=== PATIENT | female | born 2000 | race Caucasian/White ===

== ENCOUNTER 2019-02-25 03:02 | Emergency (ER) | payer OTHER ==
[~2019-02-25] VITALS: Ht 157.5 cm; Wt 64.5 kg
[2019-02-25 03:03] VITALS: Ht 157.5 cm; Wt 64.5 kg
[2019-02-25] MEDS ORDERED: IBUPROFEN 600 MG TAB PO ONE (04:00)
[2019-02-25] MEDS ORDERED: LORAZEPAM 1 MG TAB PO ONE (04:00)
--- NOTE | 2019-02-25 04:10 | ERD ---
ER Documentation Chief Complaint Chief Complaint CP, R ARM PAIN X'S 1 WEEK HPI 18-year-old female with no significant past medical history presents emergency department complaining of sharp, tightening feeling mid chest pain which is intermittent for the past 1 week. She also reports some numbness and tingling to her right upper extremity. She denies any chest pain at rest. She reports increased stress due to school at this time. She tried no medication for relief of symptoms. She adamantly denies any homicidal or suicidal ideation. She does admit to feeling very anxious at this time. No other symptoms reported currently. ROS All systems reviewed and are negative except as per history of present illness. Medications Home Meds Active Scripts Hydroxyzine Hcl* (Hydroxyzine Hcl*) 25 Mg Tablet, 25 MG PO Q8H PRN for ANXIETY, #30 TAB Prov:JUANCHO TOLENTINO PA-C 02/25/19 Allergies Allergies: Coded Allergies: No Known Drug Allergy (Verified Allergy, Unknown, 06/30/09) PMhx/Soc Medical and Surgical Hx: pt denies Medical Hx FmHx Family History: No diabetes Physical Exam Vitals Physical Exam Const: No acute distress Head: Atraumatic Eyes: Normal Conjunctiva ENT: Normal External Ears, Nose and Mouth. Neck: Full range of motion. No meningismus. Resp: Clear to auscultation bilaterally Cardio: Regular rate and rhythm, no murmurs. Reproducible midsternal chest pain on palpation. Abd: Soft, non tender, non distended. Normal bowel sounds Skin: No petechiae or rashes Back: No midline or flank tenderness Ext: No cyanosis, or edema Neur: Awake and alert Psych: Normal Mood and Affect Results 24 hrs Laboratory Tests Test 02/25/19 04:22 POC Beta HCG, Qualitative NEGATIVE Current Medications Medications Dose Sig/[place] Start Time Status Last (Trade) Ordered Route PRN Stop Time Admin Dose Reason Admin Lorazepam 1 mg ONCE ONCE 02/25/19 DC 02/25/19 (Ativan) PO 04:00 02/25/19 04:21 04:02 Ibuprofen 600 mg ONCE ONCE 02/25/19 DC 02/25/19 (Motrin) PO 04:00 02/25/19 04:21 04:02 [place] [id number] Radiology Main Line: [phone] DIAGNOSTIC IMAGING REPORT Patient: LANEY AWAD : 2000 Age: 18 Sex: F MR #: [id number] [facility] #: [id number] DOS: 02/25/19 0000 Ordering MD: JUANCHO TOLENTINO PA-C Location: [facility] Room/Bed: PROCEDURE: Single view chest. CLINICAL INDICATION: Chest pain TECHNIQUE: Single view of the chest was obtained COMPARISON: CR CHEST 06/30/2009 FINDINGS: There is no airspace consolidation or focal infiltrate. No pleural effusion or pneumothorax. Cardiac silhouette and mediastinal contours are unremarkable. Pulmonary vasculature appears normal. Regional bones are grossly unremarkable. IMPRESSION: No evidence of active cardiopulmonary disease. RPTAT: [facility] Physician Raudel Date Time Electronically viewed and signed by Physician Raudel on 02/25/2019 05:16 xB/ CC: JUANCHO TOLENTINO PA-C [id number] Procedures/MDM 18-year-old female presents to the emergency department complaining of midsternal chest pain and tingling in her right upper extremity as well as anxiety for the past 1 week. Examination revealed midsternal chest wall tenderness to palpation. Low suspicion for acute coronary syndrome or other emergencies as the patient's pain was reproducible on chest x-ray and EKG were within normal limits. Symptoms likely secondary to costochondritis and/or anxiety. The patient was administered Ativan and ibuprofen in the department and is significantly improved prior to discharge. Patient was counseled on my diagnostic impression and plan for further outpatient management. She was advised to return to the department immediately for any new or worsening or concerning symptoms and have 24 to 48-hour follow-up with her primary care physician. Share my medical decision making with the patient and she understands and agrees with plan. EKG: Interpreted by ED physician. Rate/Rhythm: Normal Sinus Rhythm with a rate of 74 bpm. QRS, ST, T-waves: No changes consistent w/ acute ischemia Impression: No evidence of ischemia or arrhythmia Departure Diagnosis: Primary Impression: Costochondritis Additional Impression: Anxiety reaction Condition: Fair Patient Instructions: Your Body's Response to Anxiety JUANCHO TOLENTINO PA-C Feb 25, 2019 04:10
[2019-02-25] MEDS ORDERED: HYDR-843 PO (05:21)
[2019-02-25 05:36] VITALS: BP 128/72; PULSE 70; RESP 16
== END 2019-02-25 05:36 | disposition home or self-care (01) ==
LOC: FTE 03:02
DX: M94.0 Chondrocostal junction syndrome [Tietze] (principal); F41.1 Generalized anxiety disorder
CPT/HCPCS: 71045; 81025; 93005; Z7610